=== PATIENT | female | born 1990 | race Caucasian/White ===

== ENCOUNTER 2018-03-04 14:51 | Emergency (ER) | payer OTHER ==
[2018-03-04] MEDS ORDERED: SODIUM CHLORIDE 0.9% 1000ML 1,000 ML ONE (14:53)
[2018-03-04] MEDS ORDERED: ALPRAZolam 0.25 MG TAB PO ONE (15:14)
[2018-03-04] MEDS ORDERED: MAGNESIUM SULFATE PREMIX 4GM 4 GM in PREMIX BAG 1 BAG IVPB ONE (15:14)
--- NOTE | 2018-03-04 15:18 | ED.PDOC ---
History of Present Illness - General Chief Complaint: Neuro Symptoms/Deficits Time Seen by Provider: 03/04/18 15:13 Source: patient, family, EMS Exam Limitations: no limitations - History of Present Illness Initial Comments: patient comes in today for new onset of tonic-clonic seizure. Patient was vacationing in visiting with her family and sitting at the table when he suddenly looked shaky and then had loss of consciousness with tonic-clonic movements for approximately 2 minutes. Her mother was with her and laid her on the ground on her side during the episode. After the initial tonic-clonic mov ements her mother noted that she had no loss of bowel or bladder but she was very confused for about 20 minutes prior to EMS arrival. The episode was witnessed and she's never had that before. 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 Patient stated that she had been under some increased stress recently and only found out that she was yesterday. However, she denies any fever, chills, neck pain, cough, congestion, or sore throat. She currently has a mild bilateral constant headache but no vision change, no nausea, no vomiting. She's had 3 other pregnancies and did have preeclampsia with her other children. Patient has a past medical history of bipolar disorder, anemia, and anxiety. She has no family history nor personal history of epilepsy. She does not do drugs but does smoke. She's had no recent injury or head trauma. Patient currently is alert and oriented to person place and time. Timing/Duration: other - 1-2 min Severity: severe Improving Factors: nothing Worsening Factors: nothing Associated Symptoms: other - headache, dull, mild bilateral Allergies/Adverse Reactions: Allergies Vancomycin Allergy (Mild, Verified 03/04/18 14:58) Other itching Review of Systems - Review of Systems Constitutional: States: no symptoms reported. Denies: chills, fever EENTM: States: no symptoms reported. Denies: eye pain, ear pain, ear discharge, throat pain Respiratory: States: no symptoms reported. Denies: cough, short of breath, wheezing Cardiology: States: no symptoms reported. Denies: chest pain, edema, palpitations Gastrointestinal/Abdominal: States: no symptoms reported. Denies: abdominal pain, diarrhea, nausea, vomiting Genitourinary: States: no symptoms reported Musculoskeletal: States: no symptoms reported Skin: States: no symptoms reported Neurological: States: see HPI, anxiety, headache, seizure Physical Exam - Physical Exam General Appearance: Alert, No apparent distress Eye Exam: bilateral normal ENT Exam: normal ENT inspection, hearing grossly normal, TMs normal Neck: non-tender, full range of motion, supple, normal inspection Respiratory: chest non-tender, lungs clear, normal breath sounds Cardiovascular/Chest: normal peripheral pulses, regular rate, rhythm, no edema, no gallop, no JVD, no murmur Peripheral Pulses: radial,right: 2+, radial,left: 2+ Gastrointestinal/Abdominal: normal bowel sounds, non tender, soft Back Exam: normal inspection, no CVA tenderness, no vertebral tenderness Extremities Exam: non-tender Mental Status: alert, 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 Will call for consult. - Results/Orders Results/Orders: 03/04/18 15:14 Catheter:[place] QSHIFT 03/04/18 15:15 URINALYSIS Stat Laboratory Results WBC 10.3 K/mm3 (4.8-10.8) 03/04/18 15:14 RBC 5.01 M/mm3 (4.20-5.40) 03/04/18 15:14 Hgb 11.1 gm/dL (12.0-16.0) L 03/04/18 15:14 Hct 35.5 % (36.0-47.0) L 03/04/18 15:14 MCV 70.8 fl (81.0-99.0) L 03/04/18 15:14 MCH 22.1 pg (27.0-31.0) L 03/04/18 15:14 MCHC 31.2 g/dL (33.0-37.0) L 03/04/18 15:14 RDW 17.9 % (11.5-14.5) H 03/04/18 15:14 Plt Count 299 K/mm3 (130-400) 03/04/18 15:14 MPV 8.9 fl (7.40-10.4) 03/04/18 15:14 Absolute Neuts (auto) 7.90 K/uL (1.8-6.8) H 03/04/18 15:14 Absolute Lymphs (auto) 1.80 K/uL (1.0-3.4) 03/04/18 15:14 Absolute Monos (auto) 0.50 K/uL (0.2-0.8) 03/04/18 15:14 Absolute Eos (auto) 0.10 K/uL (0.0-0.4) 03/04/18 15:14 Absolute Basos (auto) 0.10 K/uL (0.0-0.1) 03/04/18 15:14 Neutrophils % 75.9 % (42.0-78.0) 03/04/18 15:14 Lymphocytes % 17.3 % (20.0-50.0) L 03/04/18 15:14 Monocytes % 5.1 % (2.0-9.0) 03/04/18 15:14 Eosinophils % 0.9 % (1.0-5.0) L 03/04/18 15:14 Basophils % 0.8 % (0.0-2.0) 03/04/18 15:14 PT 10.4 SECONDS (9.0-10.9) 03/04/18 15:14 INR 1.04 (0.9-1.15) 03/04/18 15:14 PTT (SP) 21.5 SECONDS (21.8-31.6) L 03/04/18 15:14 Sodium 136 mmol/L (135-145) 03/04/18 15:14 Potassium 3.3 mmol/L (3.6-5.0) L 03/04/18 15:14 Chloride 106 mmol/L (101-111) 03/04/18 15:14 Carbon Dioxide 17 mmol/L (21-31) L 03/04/18 15:14 Anion Gap 16.3 (12-18) 03/04/18 15:14 BUN 10 mg/dL (7-18) 03/04/18 15:14 Creatinine 0.61 mg/dL (0.6-1.3) 03/04/18 15:14 BUN/Creatinine Ratio 16.4 (10-20) 03/04/18 15:14 Random Glucose 127 mg/dL (70-105) H 03/04/18 15:14 Serum Osmolality 272.6 mOsm/L (275-295) L 03/04/18 15:14 Lactic Acid 1.8 mmol/L (0.5-2.2) 03/04/18 15:42 Uric Acid 5.5 mg/dL (2.6-7.2) 03/04/18 15:14 Calcium 9.0 mg/dL (8.4-10.2) 03/04/18 15:14 Magnesium 2.0 mg/dL (1.8-2.5) 03/04/18 15:18 Total Bilirubin 0.5 mg/dL (0.2-1.0) 03/04/18 15:14 AST 31 IU/L (10-42) 03/04/18 15:14 ALT 20 IU/L (10-60) 03/04/18 15:14 Alkaline Phosphatase 42 IU/L (42-121) 03/04/18 15:14 Serum Total Protein 8.0 gm/dL (6.4-8.2) 03/04/18 15:14 Albumin 4.2 g/dl (3.2-5.5) 03/04/18 15:14 Globulin 3.8 gm/dL (2.3-3.5) H 03/04/18 15:14 Albumin/Globulin Ratio 1.1 (1.1-1.9) 03/04/18 15:14 Urine Color Yellow (Yellow) 03/04/18 15:36 Urine Appearance Clear (Clear) 03/04/18 15:36 Urine pH 6.5 (4.5-7.8) 03/04/18 15:36 Ur Specific [place] 1.025 (1.005-1.030) 03/04/18 15:36 Urine Protein Negative mg/dL 03/04/18 15:36 Urine Glucose (UA) Negative mg/dL (Negative) 03/04/18 15:36 Urine Ketones 15 mg/dL (NEGATIVE) H 03/04/18 15:36 Urine Blood Negative (Negative) 03/04/18 15:36 Urine Nitrite Negative 03/04/18 15:36 Urine Bilirubin Negative (NEGATIVE) 03/04/18 15:36 Urine Urobilinogen 0.2 mg/dL (0.2-1.0) 03/04/18 15:36 Ur Leukocyte Esterase Negative (Negative) 03/04/18 15:36 Urine RBC 0 /hpf 03/04/18 15:36 Urine WBC 0 /hpf 03/04/18 15:36 Ur Epithelial Cells 5-10 /hpf 03/04/18 15:36 Urine Bacteria 0 03/04/18 15:36 Urine Opiates Screen Negative ng/mL (2000) 03/04/18 15:15 Urine Barbiturates Negative ng/mL (200) 03/04/18 15:15 Ur Phencyclidine Scrn Negative ng/mL (25) 03/04/18 15:15 U Amphetamin/Meth Scrn Negative ng/mL (1000) 03/04/18 15:15 U Benzodiazepines Scrn Positive ng/mL (200) H 03/04/18 15:15 U Cocaine Metab Screen Negative ng/mL (300) 03/04/18 15:15 U Cannabinoids Screen Positive ng/mL (50) H 03/04/18 15:15 Departure - Departure Clinical Impression: Seizure Qualifiers: Weeks of gestation: 8 weeks Qualified Code(s): Z3A.08 - 8 weeks gestation of Disposition: Transfer to Hospital Condition: Good Departure Forms: ED Discharge - Pt. Copy, Patient Portal Self Enrollment Transfer to Outside Facility - Transfer Information Accepting Facility: [facility] Reason for Transfer: required specialist not available
[2018-03-04] MEDS ORDERED: MAGNESIUM SULFATE PREMIX 4GM 50 ML IVPB ONE (15:43)
[2018-03-04] MEDS ORDERED: ALPRAZolam 0.5 MG TAB ONE (15:47)
[2018-03-04 16:50] VITALS: O2SAT 100
[2018-03-04 17:39] VITALS: BP 116/81; TEMP 99.3
== END 2018-03-04 17:20 | disposition short-term general hospital (02) ==
LOC: ER 14:51
DX: O99.351 Diseases of the nervous system complicating pregnancy, first trimester (principal); R56.9 Unspecified convulsions; O99.341 Other mental disorders complicating pregnancy, first trimester; F31.9 Bipolar disorder, unspecified; F41.9 Anxiety disorder, unspecified; O99.331 Smoking (tobacco) complicating pregnancy, first trimester; F17.200 Nicotine dependence, unspecified, uncomplicated; Z3A.08 8 weeks gestation of pregnancy; Z88.1 Allergy status to other antibiotic agents
CPT/HCPCS: 80053; 80307; 81001; 83605; 83735; 84550; 85025; 85610; 85730; J3475; J7030